=== PATIENT | male | born 1995 | race Caucasian/White ===

== ENCOUNTER 2019-09-09 13:05 | Emergency (ER) | payer OTHER ==
[~2019-09-09] VITALS: Ht 165.1 cm; Wt 113.4 kg
[~2019-09-09 13:05] MED LIST: KEFLEX500 MG PO; NAPROSYN500 MG PO
[2019-09-09 14:25] LABS: BASOPHILS 0.3 % (0.0-2.0)
[2019-09-09 14:33] LABS: ABSOLUTE NEUTROPHILS 12.7 thou/uL (1.4-8.2); EOSINOPHILS 1.3 % (0.0-3.0); HEMATOCRIT 35.6 % (42.0-52.0); HEMOGLOBIN 11.9 gm/dL (14.0-18.0); MCH 31.4 pg (26.0-34.0); MCHC 33.4 g/dL (28.0-37.0); MCV 94.3 fL (80.0-100.0); MONOCYTES 6.2 % (1.0-8.0); PLATELET COUNT 245 thou/uL (150-400); POLYS 84.2 % (36.0-66.0); RBC 3.78 mil/uL (4.50-6.00); RDW 13.8 % (10.5-14.5); WBC 15.1 thou/uL (4.0-11.0)
[2019-09-09 15:07] LABS: POTASSIUM 4.2 mmol/L (3.5-5.1)
[2019-09-09 15:08] LABS: CALCIUM 8.1 mg/dL (8.5-10.1); CREATININE 0.9 mg/dL (0.7-1.3); TOTAL BILIRUBIN 0.9 mg/dL (0.2-1.0); URIC ACID* 5.1 mg/dL (3.5-7.2)
[2019-09-09 15:09] LABS: ALBUMIN 3.3 g/dL (3.4-5.0)
[2019-09-09] MEDS ORDERED: PREDNISONE 10 M10 M1 PO (15:19)
[2019-09-09] MEDS ORDERED: INDOMETHACIN 5050 M1 PO (15:19)
[2019-09-09] MEDS ORDERED: NORCO 5-325 TA1 EAC1 PO (15:22)
[2019-09-09 16:01] VITALS: BP 126/70
== END 2019-09-09 16:01 | disposition home or self-care (01) ==
LOC: ER 13:05
PROVIDERS: Physician Assistant
DX: M10.9 Gout, unspecified (principal)